=== PATIENT | female | born 1975 | race Two or more races ===

== ENCOUNTER → 2024-01-27 | Outpatient (CLI) | payer MEDICAID ==
[~2024-01-27] VITALS: Ht 160 cm; Wt 97.5 kg
[2024-01-27] MEDS: ADENOSINE 82 MG in GIVE UN-DILUTED 0 ML IV STA (12:50)
--- NOTE | 2024-01-27 15:12 | DVHSR ---
APPROVED REPORT Exam: Nuclear Stress Test Indication: Chest pain Stress Tech: Lea Whitaker Ht: 5 ft 3 in Wt: 215 lbs BSA: 1.99 m2 BMI: 38.08 Medical History Medical History: PRE-DIABETIC Allergies: ASPIRIN, LIDOCAINE W/EPI Stress Test Details Stress Test: Pharmacological stress testing performed using 82 mg of Adenosine Reason for pharmacologic stress test: CP. HR Resting HR: 78 bpmMax Heart Rate (APMHR): 172.622818 bpm Max HR Achieved: 95 bpmTarget HR (85% APMHR): 146.417820 bpm % of APMHR: 55.23 Recovery HR: 85 bpm BP Resting BP: 123/68 mmHg Recovery BP: 113/70 mmHg ECG Resting ECG: Sinus Rhythm Clinical Reason for Termination: Completed protocol Nurse Comments Outpatient received from Nuclear Medicine. Patient is A&O x4 and on room air, for VS please see stre ss test assessment documentation. 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 See cardio-neuro proced ural notes for addtional details. LT & RT FOREARM 22g PIVs flush well. Reviewed POC, patient verbal ized understanding, and consents to test. Adenosine stress test performed per protocol. product support technician administered Cardiolite. Pt. to lerated well and all vitals returned to baseline. Patient transferred back to Nuclear Medicine with tech in stable condition. Stress ECG Conclusion Resting ECG shows normal sinus rhythm. At peak stress level no dynamic EKG changes was noted to sugg est ischemia. Resting images shows near homogeneous uptake of radioactive tracer throughout the myocardium without evidence of myocardial infarction. Stress images shows near homogeneous uptake of radioactive tracer throughout the myocardium without e vidence of myocardial ischemia. Well-preserved left ventricular systolic function at 89%. Impression: Negative stress test for ischemia, low risk study NM EXAM: Myocardial Perfusion REST/STRESS Imaging Protocol: Rest Tc-99m/Stress Tc-99m 1 day Resting Data Rest SPECT myocardial perfusion imaging was performed in supine position 60 minutes following the int ravenous injection of 14 mCi of Tc-99m Sestamibi. Time of rest injection: 1040 Date: 01/27/2024 Time of rest imagin Date: 01/27/2024 Administration Route: IV Administration Site: Left Arm Pharmacologic Stress Pharmacologic stress test was performed by injecting Adenosine mg IV push followed by the intravenou s injection of 31.6 mCi of Tc-99m Sestamibi. Time of stress injection: 1252 Date: 01/27/2024 Time of stress imagin Date: 01/27/2024 Administration Route: IV Administration Site: Left Arm Gated Stress SPECT was performed 60 minutes after stress injection. The images were gated to evaluate regional wall motion and calculate left ventricular ejection fracti on. Stress only was performed in the Supine position. Nuclear Conclusion ECG Findings: negative for ischemia Clinical Findings: negative for ischemia Nuclear Findings: negative for ischemia Exercise Capacity: not assessed Left Ventricular Function: normal Risk Study: low Resting ECG shows normal sinus rhythm. At peak stress level no dynamic EKG changes was noted to sugg est ischemia. Resting images shows near homogeneous uptake of radioactive tracer throughout the myocardium without evidence of myocardial infarction. Stress images shows near homogeneous uptake of radioactive tracer throughout the myocardium without e vidence of myocardial ischemia. Well-preserved left ventricular systolic function at 89%. Impression: Negative stress test for ischemia, low risk study
== END | disposition home or self-care (01) ==
LOC: XYW 11:23
PROVIDERS: ATTEND Internal Medicine
DX: Z01.810 Encounter for preprocedural cardiovascular examination (principal); R07.9 Chest pain, unspecified; Z88.6 Allergy status to analgesic agent
CPT/HCPCS: 78452; A9500; J0153